=== PATIENT | female | born 1985 | race Caucasian/White ===

== ENCOUNTER 2019-10-15 09:13 | Observation (INO) ==
[2019-10-15 09:53] LABS: Hematocrit 43.4 % (35.3-44.9); Hemoglobin 13.9 g/dL (11.5-15.4); Mean Corpuscular Volume 93.7 fL (83.0-100.0); Mean Platelet Volume 8.2 fL (9.4-12.4); Platelet Count 283 K/mcL (140-400); Red Blood Count 4.63 M/mcL (3.82-4.97); Red Cell Distribution Width 12.5 % (11.5-14.5); White Blood Count 6.5 K/mcL (4.3-11.1)
[2019-10-15] MEDS ORDERED: Isovue-370 500 ML BOTTLE IVP ONE (09:55)
[2019-10-15 10:02] LABS: Activated Partial Thrombo Time 29.9 Seconds (26.0-36.0)
[2019-10-15 10:16] LABS: BUN/Creatinine Ratio 17 (6-26); Blood Urea Nitrogen 13 mg/dL (6-20); Calcium 8.8 mg/dL (8.6-10.3); Carbon Dioxide 25 mEq/L (23-29); Chloride 106 mEq/L (98-107); Creatine Kinase 53 Units/L (30-223); Glucose 96 mg/dL (70-105); Osmolality,Calculated 290 (280-300); Potassium 4.1 mEq/L (3.5-5.1); Sodium 140 mEq/L (136-145); Troponin I < 0.03 ng/mL (< 0.04); eGFR For African Americans > 60 (> 60); eGFR For Non-African Americans > 60 (> 60)
[2019-10-15 10:20] LABS: Bilirubin,Urine Negative (Negative); Blood,Urine Negative (Negative); Clarity,Urine Clear (Clear); Color,Urine Yellow (Yellow); Glucose,Urine (UA) Normal (Normal); Ketones,Urine Negative (Negative); Leukocyte Esterase,Urine Negative (Negative); Nitrite,Urine Negative (Negative); PH,Urine 5.5 pH Units (5.0-8.0); Protein,Urine Negative (Neg-Trace); Specific Gravity,Urine 1.022 (1.010-1.025); Urobilinogen,Urine Normal (Normal)
[2019-10-15] MEDS ORDERED: Naloxone 0.4 MG/ML INJ IVP PRN (13:31)
[2019-10-15 14:42] LABS: Chol/HDL Ratio 2.6 (0-4.9)
[2019-10-15] MEDS: *HR* Heparin 5,000 UNIT/ML VIAL SQ SCH ×2 (15:01→21:33)
[2019-10-16] MEDS: *HR* Heparin 5,000 UNIT/ML VIAL SQ SCH ×3 (05:44→20:50)
[2019-10-16 08:26] LABS: Hematocrit 44.3 % (35.3-44.9); Hemoglobin 14.2 g/dL (11.5-15.4); Mean Corpuscular HGB Conc 32.1 g/dL (31.6-35.5); Mean Corpuscular Hemoglobin 29.9 pg (28.0-33.3); Mean Corpuscular Volume 93.3 fL (83.0-100.0); Mean Platelet Volume 8.3 fL (9.4-12.4); Platelet Count 281 K/mcL (140-400); Red Blood Count 4.75 M/mcL (3.82-4.97); Red Cell Distribution Width 12.4 % (11.5-14.5); White Blood Count 5.3 K/mcL (4.3-11.1)
[2019-10-16 08:47] LABS: Amphetamine Screen,Urine Negative ng/mL (Cutoff=1000); Barbiturate Screen,Urine Negative ng/mL (Cutoff=200); Benzodiazepines Screen,Urine Negative ng/mL (Cutoff=200); Cannabinoid Screen,Urine Negative ng/mL (Cutoff = 50); Cocaine Screen,Urine Negative ng/mL (Cutoff= 300); Opiate Screen,Urine Negative ng/mL (Cutoff=300); Phencyclidine Screen,Urine Negative ng/mL (Cutoff=25)
[2019-10-16] MEDS ORDERED: Gadolinium Contrast Agent (WT Based) IV PRN (08:59)
[2019-10-17] MEDS: *HR* Heparin 5,000 UNIT/ML VIAL SQ SCH ×2 (05:39→13:31)
[2019-10-17 10:42] VITALS: BP 102/69
== END 2019-10-17 14:28 | disposition home or self-care (01) ==
LOC: EMEROOARM 09:13 → 3BNU 09:13
PROVIDERS: ADMIT Student in an Organized Health Care Education/Training Program; ATTEND Student in an Organized Health Care Education/Training Program